=== PATIENT | female | born 1995 | race Two or more races ===

== ENCOUNTER 2019-12-13 11:15 | Day surgery (SDC) | payer OTHER ==
[~2019-12-13 11:15] MED LIST: MORGIDOX100 MG PO; Tylenol #3 PO
== END 2019-12-13 23:45 | disposition home or self-care (01) ==
LOC: CIR.AMB 11:15 → LAB 15:49 → CIR.AMB 15:59 → LAB 15:59 → CIR.AMB 23:45
PROVIDERS: ATTEND Obstetrics & Gynecology
DX: O02.1 Missed abortion (principal); Z20.828 Contact with and (suspected) exposure to other viral communicable diseases

== ENCOUNTER 2020-10-15 12:45 | Inpatient (IN) | payer OTHER ==
[~2020-10-15] VITALS: Ht 162.6 cm; Wt 62.6 kg
[2020-10-30] MEDS ORDERED: PRENATAL TABLE1 EAC1 PO (06:25)
== END 2020-11-04 09:01 | disposition home or self-care (01) | DRG 768 ==
LOC: SURH 10-19 12:45 → OB/GYN 10-30 06:03 → LDR 10-30 06:03 → OB/GYN 10-30 16:24
PROVIDERS: ADMIT Specialist; ATTEND Specialist
PROC: 10E0XZZ Delivery of Products of Conception, External Approach (ICD-10-PCS; principal; 2020-10-30)
PROC: 0DQR0ZZ Repair Anal Sphincter, Open Approach (ICD-10-PCS; 2020-10-30)
PROC: 10907ZC Drainage of Amniotic Fluid, Therapeutic from Products of Conception, Via Natural or Artificial Opening (ICD-10-PCS; 2020-10-30)
PROC: 0W8NXZZ Division of Female Perineum, External Approach (ICD-10-PCS; 2020-10-30)
PROC: 3E033VJ Introduction of Other Hormone into Peripheral Vein, Percutaneous Approach (ICD-10-PCS; 2020-10-30)
PROC: 4A1HXFZ Monitoring of Products of Conception, Cardiac Rhythm, External Approach (ICD-10-PCS; 2020-10-30)
PROC: 30233N1 Transfusion of Nonautologous Red Blood Cells into Peripheral Vein, Percutaneous Approach (ICD-10-PCS; 2020-11-03)
DX: O70.20 Third degree perineal laceration during delivery, unspecified (principal); Z37.0 Single live birth; D62 Acute posthemorrhagic anemia; O90.81 Anemia of the puerperium; Z3A.39 39 weeks gestation of pregnancy